=== PATIENT | male | born 1945 | race Hispanic/Latino ===

== ENCOUNTER → 2021-09-22 | Outpatient (CLI) | payer OTHER ==
[~2021-09-22] MED LIST: IOHEXOL 350 MG/ML 100ML INFUS..BTL IV ONE; LISI1TAB49 PO; TRAM50TA4 PO; XALA2.5OS OU
== END | disposition home or self-care (01) ==
LOC: RAH 07:54
PROVIDERS: ATTEND Urology
DX: N40.0 Benign prostatic hyperplasia without lower urinary tract symptoms (principal); R31.29 Other microscopic hematuria
CPT/HCPCS: 74178; Q9967